=== PATIENT | female | born 1975 | race African-American/Black ===

== ENCOUNTER 2016-09-24 23:59 | Emergency (ER) | payer OTHER ==
--- NOTE | ~2016-09-24 | CR169 ---
[facility] A Service of [facility] RADIOLOGY TEXT RESULTS PATIENT: ELEUTERIO BRITT LOCATION: CFTX : 79 UNIT #: [id number] AGE: [address]: Christopher De La Cruz SEX: F ORDER DR: [id number] [facility] [address] [place], [place] [address] [id number] MR#: [id number] Acc #: [id number] NAME: ELEUTERIO BRITT : 1975 SEX: F STUDY DATE/TIME: 09/25/2016 0:52 UNIT: [facility] ROOM: STUDY DESCRIPTION: CR Knee 2 Views Lt Attending Physician: Christopher De La Cruz P.A.-C. Ordering Physician: Christopher De La Cruz P.A.-C. Primary Care Physician: Primary Care Physician No MEDICAL IMAGING REPORT This report is preliminary unless electronic signature is present EXAM 2 view left knee HISTORY Generalized knee pain for 2 weeks. FINDINGS 2 views of the left knee demonstrate no fracture or dislocation. Minimal hypertrophic changes tibial spine suggest early degenerative change. No joint effusion. Mild medial joint space narrowing. IMPRESSION Mild degenerative changes left knee. No acute findings. Dictated by... Krzysztof Moran M.D. THIS IS AN ELECTRONICALLY VERIFIED REPORT Krzysztof Moran M.D. at 09/26/2016 10:34 PM NAILA/ajay TD: 09/25/2016 07:04 JOB #: [id number] MEDICAL IMAGING REPORT Page 1 of 1 COPY
[2016-09-25 01:31] LABS: BASOPHIL# 0.1 X10e3 (0-0.3); BASOPHIL% 0.9 % (0-2.5); EOSINOPHIL# 0.2 X10e3 (0-0.7); EOSINOPHIL% 2.5 % (0.0-7.0); HEMOGLOBIN 13.6 gm/dL (12.0-16.0); LYMPHOCYTE# 3.4 X10e3 (1.0-3.5); LYMPHOCYTE% 47.8 % (17.0-45.0); MEAN CELL VOLUME 97.4 FL (83-96); MEAN CORPUSCULAR HEMOGLOBIN 32.4 PG (28-34); MEAN CORPUSCULAR HGB CONC 33.2 g/dL (30-36); MEAN PLATELET VOLUME 9.7 FL (6.5-11.5); MONOCYTE# 0.7 X10e3 (0-1.0); MONOCYTE% 10.1 % (3.0-12.0); NEUTROPHIL# 2.7 X10e3 (1.5-7.1); NEUTROPHIL% 38.7 % (40-75); PLATELET COUNT 154 X10e3 (140-420); RED BLOOD COUNT 4.21 X10e (3.90-5.30); RED CELL DISTRIBUTION WIDTH 14.3 % (11.0-15.5)
[2016-09-25 01:34] LABS: DIFF IND NO
[2016-09-25 02:00] LABS: ALBUMIN SERUM 4.2 g/dL (3.5-5.0); BILIRUBIN,TOTAL 0.7 mg/dL (0.2-2.0); CALCIUM SERUM 9.1 mg/dL (8.4-10.2); CREATININE SERUM 0.7 mg/dL (0.6-1.4); GLOM FILT RATE Estimated 126.5 mL/min (>60); POTASSIUM 3.1 mmol/L (3.5-5.1); PROTEIN TOTAL SERUM 7.7 g/dL (6.0-8.3)
== END 2016-09-25 02:23 | disposition home or self-care (01) ==
LOC: CFTX 23:59
PROVIDERS: Physician Assistant
DX: M25.562 Pain in left knee (principal); F17.200 Nicotine dependence, unspecified, uncomplicated
CPT/HCPCS: 36415; 73560; 80053; 85025; 85379; 99283